=== PATIENT | male | born 1970 | race Caucasian/White ===

== ENCOUNTER 2019-08-08 12:28 | Emergency (ER) | payer BC ==
[~2019-08-08] VITALS: Ht 188 cm; Wt 100.0 kg
[~2019-08-08 12:28] MED LIST: ALLERGY MED; BENTYL 20MG TAB20 MG PO; INDOMETHACIN50 MG PO; LORATADINE10 MG PO; NEXIUM 40MG40 MG PO; TYLENOL 500MG500 MG PO; ZESTRIL2.5 MG PO; ZYRTEC10 MG PO; [UNRECOGNIZED DRUG - REMARK]
[2019-08-08 13:11] LABS: INR 0.9 (0.8-3.0)
[2019-08-08 13:12] LABS: BASO % 0.4 % (0.0-2.0); EOS # 0.2 (0.0-0.7); EOS % 2.6 % (0-4.0); GRAN # 6.1 (1.4-6.5); GRAN % 71.1 % (42.2-75.2); HEMATOCRIT 45.9 % (42.0-52.0); HEMOGLOBIN 16.2 g/dl (13.5-18.0); LYMPH # 1.5 (1.2-3.4); LYMPH % 17.9 % (20.0-51.0); MEAN CELL VOLUME 88 fl (80.0-100.0); MEAN CORPUSCULAR HEMOGLOBIN 31 pg (27.0-31.0); MEAN CORPUSCULAR HGB CONC 35 g/dl (33.0-37.0); MEAN PLATELET VOLUME 9.5 fl (7.4-10.4); MONO # 0.6 (0.1-0.6); MONO % 7.4 % (1.7-9.3); PLATELET COUNT 241 K/mm3 (130-400); RED BLOOD COUNT 5.21 M/mm3 (4.20-5.60)
[2019-08-08 13:14] LABS: PARTIAL THROMBOPLASTIN TIME 27.5 SECONDS (26.0-37.0)
[2019-08-08 13:15] LABS: ALANINE AMINOTRANSFERASE 37 U/L (21-72); ALBUMIN 4.7 gm/dL (3.5-5.0); ALKALINE PHOSPHATASE 55 U/L (50-136); ANION GAP 8 mmol/L (7-16); AST,SGOT 37 U/L (15-37); BILIRUBIN,TOTAL 0.7 mg/dL (0.0-1.0); BLOOD UREA NITROGEN 19 mg/dL (9-20); CALCIUM 9.7 mg/dL (8.4-10.2); CARBON DIOXIDE 25 mmol/L (22-30); CHLORIDE 104 mmol/L (98-107); CREATININE, serum 1.08 (0.66-1.25); GLUCOSE 106 mg/dL (74-106); POTASSIUM 4.4 mmol/L (3.4-5.0); SODIUM 137 mmol/L (137-145); TOTAL PROTEIN 8.1 gm/dL (6.4-8.2)
[2019-08-08 13:31] LABS: PROLACTIN 14.9 ng/mL (3.7-17.9)
[2019-08-08 13:32] LABS: TROPONIN-I < 0.012 ng/mL (0.000-0.035)
[2019-08-08] MEDS ORDERED: FLONASEALLERGY NS (13:33)
[2019-08-08 17:12] VITALS: BP 141/112; PULSE 88; TEMP 98.2
== END 2019-08-08 17:07 | disposition home or self-care (01) ==
LOC: COL.ER 12:28
PROVIDERS: Family Medicine
DX: R55 Syncope and collapse (principal)
CPT/HCPCS: J7030

== ENCOUNTER 2019-09-08 07:27 | Day surgery (SDC) | payer BC ==
[2019-09-08] VITALS (11 sets, daily range): BP systolic 116–154; BP diastolic 84–102; PULSE 61–87; TEMP 97.9
[~2019-09-08] VITALS: Ht 188.1 cm; Wt 106.0 kg
[~2019-09-08 07:27] MED LIST changes: +FLONASEALLERGY NS; +ZYRTEC 10MG10 MG PO; -ZYRTEC10 MG PO
[2019-09-08 08:19] LABS: HEMATOCRIT 44.2 % (42.0-52.0); HEMOGLOBIN 15.2 g/dl (13.5-18.0); MEAN CELL VOLUME 89 fl (80.0-100.0); MEAN CORPUSCULAR HEMOGLOBIN 31 pg (27.0-31.0); MEAN CORPUSCULAR HGB CONC 34 g/dl (33.0-37.0); MEAN PLATELET VOLUME 9.7 fl (7.4-10.4); PLATELET COUNT 273 K/mm3 (130-400); RED BLOOD COUNT 4.95 M/mm3 (4.20-5.60); REDCELL DISTRIBUTION WIDTH-CV 12.1 % (11.5-14.5)
[2019-09-08] MEDS ORDERED: SINGULAIR 110 MG/TAB PO (08:19)
[2019-09-08] MEDS ORDERED: XYZAL5 MG PO (08:27)
[2019-09-08 08:28] LABS: CALCIUM 9.5 mg/dL (8.4-10.2); CREATININE, serum 1.13 (0.66-1.25); POTASSIUM 4.4 mmol/L (3.4-5.0)
[2019-09-08 08:32] LABS: PROTHROMBIN TIME 11.6 SECONDS (9.7-12.8)
--- NOTE | 2019-09-08 09:54 | NUR ---
ALL MEDICATIONS GIVEN VORB WITH MD. SEE MERGE FOR ALL MEDICATION ADMIN TIMES. SEE MERGE FOR ALL RASS ASSESSMENTS DURING AND POST PROCEDURE. POSITIVE BARBEAU'S TEST IN THE RIGHT WRIST, RADIAL PULSE +1.
--- NOTE | 2019-09-08 11:00 | NUR ---
LOOP RECORDER SET UP WILL BE DONE IN PATIENT ROOM IN [facility], ALONG WITH PATIENT EDUCATION. UNABLE TO CONNECT DEVICE TO BUDGET AND POLICY ANALYST IN PATIENT CARE REPRESENTATIVE.
[2019-09-08] MEDS ORDERED: CEPHALEXIN500 M1 PO (11:06)
--- NOTE | 2019-09-08 11:20 | NUR ---
Pt returned to EU 12 per bed s/p heart cath and loop recorder placement. Loop site on L chest C/D/I covered with gauze and paper tape. Pt resting well in bed, mother at bedside.
[2019-09-08] MEDS ORDERED: TIAZAC180 MG PO (11:23)
[2019-09-08] MEDS ORDERED: ASPIRIN E.C. 8181 MG PO (11:34)
[2019-09-08] MEDS ORDERED: LIPITOR 40MG TA40 MG PO (11:34)
--- NOTE | 2019-09-08 11:35 | NUR ---
Patient transported back to room 12 at this time. Patient hooked up to monitoring equipment at this time. VS stable. Patient alert and oriented, denies any pain at this time. Adeline RN at bedside. Visualized loop insertion site and right radial site. Loop insertion dressing clean, dry, and intact. No oozing or hematoma noted. TR band remains in place with 14 ml of air in the band. No oozing or hematoma noted. Site around TR band is soft and nontender. Cap refill <3 seconds. Discussed wrist restrictions with family and patient. Bed in locked and lowest position. Call light within reach.
--- NOTE | 2019-09-08 11:40 | NUR ---
R WAVE AMPLITUDE: 0.25 mV. MD HOFFMANN AWARE, NO OTHER ORDERS AT THIS TIME.
--- NOTE | 2019-09-08 11:42 | NUR ---
PATIENT AND FAMILY EDUCATED REGARDING LOOP DEVICE AND POST CARE INSTRUCTIONS. ALL QUESTIONS AND CONCERNS ADDRESSED AT THIS TIME.
--- NOTE | 2019-09-08 14:20 | NUR ---
R radial band removed. R radial cath site remains soft, C/D/I, covered with bandaid and gauze and wrapped with coban. L chest loop recorder site C/D/I covered with gauze and paper tape.
--- NOTE | 2019-09-08 14:35 | NUR ---
Pt has ambulated, voided and nayeli PO intake s n/v. PIV removed with catheter intact.
--- NOTE | 2019-09-08 15:00 | NUR ---
Pt discharged per w/c by nurse with mother.
== END 2019-09-08 16:21 | disposition home or self-care (01) ==
LOC: COL.CAR 07:27
PROVIDERS: Internal Medicine Cardiovascular Disease
DX: I25.10 Atherosclerotic heart disease of native coronary artery without angina pectoris (principal); R00.2 Palpitations; I10 Essential (primary) hypertension; K21.0 Gastro-esophageal reflux disease with esophagitis; J30.9 Allergic rhinitis, unspecified; F41.9 Anxiety disorder, unspecified; Z82.49 Family history of ischemic heart disease and other diseases of the circulatory system
CPT/HCPCS: J1644; J2250; J3010; Q9967

== ENCOUNTER 2021-08-30 08:03 | Emergency (ER) | payer OTHER ==
[~2021-08-30] VITALS: Ht 188 cm; Wt 100.0 kg
[~2021-08-30 08:03] MED LIST changes: +ASPIRIN E.C. 8181 MG PO; +CEPHALEXIN500 M1 PO; +LIPITOR 40MG TA40 MG PO; +SINGULAIR 110 MG/TAB PO; +TIAZAC180 MG PO; +XYZAL5 MG PO
[2021-08-30 08:07] VITALS: TEMP 97.7
[2021-08-30 08:22] LABS: BASO % 0.4 % (0.0-2.0); EOS # 0.2 K/mm3 (0.0-0.7); EOS % 2.1 % (0-4.0); GRAN # 4.4 K/mm3 (1.4-6.5); GRAN % 61.1 % (42.2-75.2); HEMATOCRIT 46.7 % (42.0-52.0); HEMOGLOBIN 16.3 g/dl (13.5-18.0); LYMPH % 27.4 % (20.0-51.0); MEAN CELL VOLUME 89 fl (80.0-100.0); MEAN CORPUSCULAR HEMOGLOBIN 31 pg (27.0-31.0); MEAN CORPUSCULAR HGB CONC 35 g/dl (33.0-37.0); MEAN PLATELET VOLUME 9.9 fl (7.4-10.4); MONO # 0.6 K/mm3 (0.1-0.6); PLATELET COUNT 247 K/mm3 (130-400); RED BLOOD COUNT 5.26 M/mm3 (4.20-5.60); REDCELL DISTRIBUTION WIDTH-CV 11.9 % (11.5-14.5)
[2021-08-30 08:41] LABS: ALBUMIN 4.2 gm/dL (3.5-5.0); BILIRUBIN,TOTAL 0.5 mg/dL (0.2-1.2); CALCIUM 9.3 mg/dL (8.4-10.2); CREATININE, serum 1.17 mg/dL (0.72-1.25); POTASSIUM 4.1 mmol/L (3.5-4.5); TOTAL PROTEIN 7.9 gm/dL (6.2-8.1)
[2021-08-30 08:47] LABS: TROPONIN-I 0.012 ng/mL (0.00-0.033)
[2021-08-30] MEDS ORDERED: ZOFRAN ODT4 MG PO ×3 (11:03→11:32)
[2021-08-30] MEDS ORDERED: IBU800 M1 PO ×3 (11:03→11:32)
[2021-08-30] MEDS ORDERED: NORCO 325 MG-51 TAB PO (11:31)
[2021-08-30 11:53] VITALS: BP 168/109; PULSE 66
[2021-08-30 12:16] LABS: TRICYCLIC ANTIDEPRESS URINE NEGATIVE
[2021-08-31] MEDS ORDERED: NORCO 325 MG-7.1 TAB PO (13:09)
== END 2021-08-30 11:55 | disposition home or self-care (01) ==
LOC: COL.ER 08:03
PROVIDERS: Emergency Medicine
DX: S06.0X9A Concussion with loss of consciousness of unspecified duration, initial encounter (principal); I10 Essential (primary) hypertension; Z79.82 Long term (current) use of aspirin; Z79.899 Other long term (current) drug therapy; V89.2XXA Person injured in unspecified motor-vehicle accident, traffic, initial encounter; Y92.411 Interstate highway as the place of occurrence of the external cause
CPT/HCPCS: J1885; J2405; Q9967

== ENCOUNTER 2021-08-31 09:18 | Emergency (ER) | payer OTHER ==
[~2021-08-31] VITALS: Ht 188 cm; Wt 113.6 kg
[~2021-08-31 09:18] MED LIST changes: +IBU800 M1 PO; +NORCO 325 MG-51 TAB PO; +ZOFRAN ODT4 MG PO
[2021-08-31 09:24] VITALS: TEMP 97.1
[2021-08-31] MEDS ORDERED: NORCO 325 MG-7.1 TAB PO (13:09)
[2021-08-31 13:43] VITALS: BP 133/92; PULSE 64
== END 2021-08-31 13:18 | disposition home or self-care (01) ==
LOC: COL.ER 09:18
DX: S06.0X0A Concussion without loss of consciousness, initial encounter (principal); R20.2 Paresthesia of skin; V49.40XA Driver injured in collision with unspecified motor vehicles in traffic accident, initial encounter
CPT/HCPCS: J1885